=== PATIENT | female | born 1955 | race Caucasian/White ===

== ENCOUNTER → 2024-07-08 09:18 | Outpatient (REF) | payer MEDICARE, SELFPAY | LOC: RAD 09:18 | PROVIDERS: ATTENDING PHYSICIAN Obstetrics & Gynecology Gynecology; FAMILY PHYSICIAN Physician Assistant | DX: Z78.0 Asymptomatic menopausal state (principal); Z12.31 Encounter for screening mammogram for malignant neoplasm of breast; M25.561 Pain in right knee; Z96.651 Presence of right artificial knee joint | CPT/HCPCS: 73564; 77063; 77067; 77080 ==

== ENCOUNTER → 2024-07-09 08:32 | Outpatient (REF) | payer MEDICARE, SELFPAY | LOC: DHSLP 08:32 | PROVIDERS: ATTENDING PHYSICIAN Physician Assistant | DX: G47.33 Obstructive sleep apnea (adult) (pediatric) (principal); R09.02 Hypoxemia | CPT/HCPCS: 95800 ==

== ENCOUNTER 2024-07-28 06:18 | Day surgery (SDC) | payer MEDICARE, SELFPAY | END 2024-07-28 14:28 | disposition home or self-care (01) | LOC: GI 06:18 | PROVIDERS: ATTENDING PHYSICIAN Internal Medicine | DX: K52.9 Noninfective gastroenteritis and colitis, unspecified (principal); R19.5 Other fecal abnormalities; K64.8 Other hemorrhoids; K63.89 Other specified diseases of intestine; K29.50 Unspecified chronic gastritis without bleeding; B96.81 Helicobacter pylori [H. pylori] as the cause of diseases classified elsewhere; Z80.0 Family history of malignant neoplasm of digestive organs; Z98.84 Bariatric surgery status | CPT/HCPCS: 45380; 43239; 88305; 88342 ==

== ENCOUNTER → 2024-12-06 07:23 | Outpatient (REF) | payer MEDICARE, SELFPAY | LOC: PAVMRI 07:23 | PROVIDERS: ATTENDING PHYSICIAN Orthopaedic Surgery; FAMILY PHYSICIAN Physician Assistant | DX: M54.16 Radiculopathy, lumbar region (principal) | CPT/HCPCS: 72148 ==

== ENCOUNTER 2025-04-14 15:17 | Outpatient (RCR) | payer MEDICARE, SELFPAY | END 2025-04-14 23:59 | disposition home or self-care (01) | LOC: RPT 15:17 | PROVIDERS: ATTENDING PHYSICIAN Physical Medicine & Rehabilitation; FAMILY PHYSICIAN Family Medicine | DX: M54.16 Radiculopathy, lumbar region (principal); M51.27 Other intervertebral disc displacement, lumbosacral region; Z73.6 Limitation of activities due to disability; M48.061 Spinal stenosis, lumbar region without neurogenic claudication | CPT/HCPCS: 97010; 97110; 97112; 97162 ==